=== PATIENT | female | born 1985 | race Caucasian/White ===

== ENCOUNTER 2017-09-23 12:20 | Emergency (ER) | payer OTHER ==
[~2017-09-23] VITALS: Ht 157.5 cm; Wt 49.9 kg
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
[2017-09-23] MEDS ORDERED: ACETAMINOPHEN ES 500 MG TABLET ONE (12:48)
[2017-09-23 12:59] VITALS: BP 109/85
[2017-09-23] MEDS ORDERED: ACETAMINOPHEN ES 500 MG TABLET PO ONE (13:00)
== END 2017-09-23 12:59 | disposition home or self-care (01) ==
LOC: ER 12:21
DX: S20.219A Contusion of unspecified front wall of thorax, initial encounter (principal); V89.2XXA Person injured in unspecified motor-vehicle accident, traffic, initial encounter; Y93.89 Activity, other specified; Y92.411 Interstate highway as the place of occurrence of the external cause; Y99.8 Other external cause status
CPT/HCPCS: 99283; A4606; Z7610